=== PATIENT | male | born 1965 | race Caucasian/White ===

== ENCOUNTER 2017-09-27 18:48 | Emergency (ER) | payer OTHER ==
[2017-09-27 18:54] VITALS: BP 129/64
--- NOTE | 2017-09-27 19:13 | ED Physician Documentation ---
History of Present Illness - Stated complaint Stated Complaint: KNEE PX - Chief complaint Chief Complaint: Ext Problem - History obtained from History obtained from: Patient - History of Present Illness Timing: How many days ago (4) Pain level max: 6 Pain level now: 3 Improved by: rest Worsened by: bending past 90 degrees - Additonal information Additional information: Patient is a 52-year-old gentleman who presents to the emergency department with right knee pain, started a few days ago. Does not recall any trauma. States it is worse with extreme flexion. Has noted pain to the posterior aspect of the right knee as well as the lateral aspect. He is on methadone for chronic pain. Does not recall any injury. Has not been using any assistive devices to walk. No recent immobilization Review of Systems Cardiac: denies: Chest pain / pressure Respiratory: denies: Dyspnea, Cough GI: denies: Abdominal Pain, Nausea, Vomiting, Diarrhea Skin: denies: Rash Musculoskeletal: denies: Neck pain, Back pain PD PAST MEDICAL HISTORY - Past Medical History Cardiovascular: Hypertension, High cholesterol Respiratory: Asthma, Sleep apnea, CPAP use Endocrine/Autoimmune: Other GI: None : Other HEENT: None Psych: None Musculoskeletal: Other Derm: None - Past Surgical History Past Surgical History: Yes General: Colonoscopy, EGD Ortho: Shoulder arthroplasty, Carpal Tunnel surgery - Present Medications Home Medications: Ambulatory Orders Medication Instructions Recorded Confirmed Ibuprofen [Motrin] 800 mg ORAL BID 09/04/14 06/28/16 Methadone HCl 10 tab ORAL BID 09/04/14 06/28/16 Cyclobenzaprine [Flexeril] 10 mg PO DAILY 06/27/16 06/28/16 Losartan/Hydrochlorothiazide 1 each PO DAILY 06/27/16 06/28/16 [Losartan-Hctz 50-12.5 mg Tab] - Allergies Allergies/Adverse Reactions: Allergies Allergy/AdvReac Type Severity Reaction Status Date / Time No Known Drug Allergies Allergy Verified 09/27/17 18:53 - Social History Does the pt smoke?: Yes Smoking Status: Current every day smoker Does the pt drink ETOH?: No Does the pt have substance abuse?: No - Immunizations Immunizations are current?: Yes PD ED PE NORMAL - Vitals Vital signs reviewed: Yes - General General: Alert and oriented X 3, No acute distress, Well developed/nourished - Derm Derm: Warm and dry - Extremities Extremities: No calf tenderness / cord, Other (R knee - ACL, MCL, PCL, LCL intact. + fidencio test. mild joint effusion. NVI) - Neuro Neuro: Alert and oriented X 3 - Psych Psych: Normal mood, Normal affect Results - Vitals Vitals: Vital Signs - 24 hr 09/27/17 18:51 Temperature 36.9 C Heart Rate 119 H Respiratory 18 Rate Blood Pressure 129/64 O2 Saturation 96 Oxygen O2 Source Room air - Rads (name of study) R knee xray Radiology: Prelim report reviewed, EMP read contemporaneously, See rad report ( No acute findings. 1.9 cm lucent lesion in the distal femur overall has a nonaggressive appearance. The differential diagnosis includes a remnant of a nonossifying fibroma, enchondroma, or a lipoma.) PD MEDICAL DECISION MAKING - ED course Complexity details: reviewed results, re-evaluated patient, considered differential, d/w patient ED course: Patient is a 52-year-old male who presents to the emergency department with right knee pain. Appears to be a meniscus injury, likely the posterior lateral corner. No acute findings on x-ray other than a lucent lesion in the distal femur. He will follow-up with his doctor for this. Placed in an articulating knee brace from 0-90. Ambulating quite well with this. We will have him follow-up with his PCP for further evaluation and care. May need referral to orthopedics if he fails to improve with conservative therapy. Patient counseled regarding signs and symptoms for which I believe and urgent re- evaluation would be necessary. Patient with good understanding of and agreement to plan and is comfortable going home at this time This document was made in part using voice recognition software. While efforts are made to proofread this document, sound alike and grammatical errors may occur. Departure - Departure Disposition: 01 Home, Self Care Clinical Impression: Knee pain, acute Qualifiers: Laterality: right Qualified Code(s): M25.561 - Pain in right knee Condition: Good Instructions: ED Meniscal Injury Knee Poss Follow-Up: Francisco Horne MD [Primary Care Provider] - Within 1 week Comments: It appears likely that you have suffered a meniscus injury. This will likely get better on its own. You should rest the knee as much as possible, elevate when possible and ice the knee for 15 minutes approximately every 4-6 hours. Use the cane as needed. You can also use the hinged knee brace to help take some of the weight off the knee and support the knee. Return if you worsen. You also have a 1.9cm lucent lesion in your femur that appears benign on xray, but should be followed up with your doctor Discharge Date/Time: 09/27/17 19:41
--- NOTE | 2017-09-27 19:25 | XRAY Preliminary Report ---
Exam: XR KNEE 4 VIEW RT IMPRESSION: 1. No acute findings. 2. 1.9 cm lucent lesion in the distal femur overall has a nonaggressive appearance. The differential diagnosis includes a remnant of a nonossifying fibroma, enchondroma, or a lipoma. [facility] SITE ID: [id number]
--- NOTE | 2017-09-27 19:27 | XRAY Report ---
EXAM: RIGHT KNEE RADIOGRAPHY EXAM DATE: 09/27/2017 07:18 PM. CLINICAL HISTORY: Right knee pain COMPARISON: None. TECHNIQUE: 4 views. FINDINGS: Bones: No fractures. There is a lobulated lucent lesion with thin sclerotic rim in the posterior port ion of the distal femoral diaphysis. This measures 1.7 x 1.0 x 1.9 cm. Joints: Normal. No effusion. No subluxations. Soft Tissues: Normal. No soft tissue swelling. IMPRESSION: 1. No acute findings. 2. 1.9 cm lucent lesion in the distal femur overall has a nonaggressive appearance. The differential diagnosis includes a remnant of a nonossifying fibroma, enchondroma, or a lipoma. [facility] Referring Provider Line: [phone] SITE ID: [id number]
== END 2017-09-27 19:41 | disposition home or self-care (01) ==
LOC: ED 18:48
DX: M25.561 Pain in right knee (principal); I10 Essential (primary) hypertension; E78.00 Pure hypercholesterolemia, unspecified; G47.30 Sleep apnea, unspecified; J45.909 Unspecified asthma, uncomplicated; F17.200 Nicotine dependence, unspecified, uncomplicated
CPT/HCPCS: 99283

== ENCOUNTER 2017-10-08 06:30 | Emergency (ER) | payer OTHER ==
--- NOTE | 2017-10-08 07:49 | ED Physician Documentation ---
History of Present Illness - Stated complaint Stated Complaint: R KNEE PX - Chief complaint Chief Complaint: Ext Problem - Additonal information Additional information: hx from pt 52 male R knee pain for a week or two he thinks it may have been injured/tweaked when it was icy out and he was slipping and sliding pain was iniitallly intermittant but gradually worsening so he came to the ED and had an xray which showed no injury but there was a 1.9 cm lucent lesion to distal femur that was "non agressive appearing" with a ddx enchondroma, fibroma, lipoma based on exam pt felt to perhaps have a posterior lateral meniscal tear and he was placed in a breace pt fup at [facility] and examined, based on location of pain PMD thought perhaps a Bakers cyst and was going to d/w rads whether to get a CT or MRI to eval bone lesion then today while wearing brace, pt bent his knee to step into his truck and felt a pop and severe posterior pain from lateral to medial posterior knee so back to the ER he takes methadone for chronic pain and declines any motrin or tylenol Review of Systems Musculoskeletal: reports: Extremity pain PD PAST MEDICAL HISTORY - Past Medical History Past Medical History: Yes Cardiovascular: Hypertension, High cholesterol Respiratory: Asthma, Sleep apnea, CPAP use Endocrine/Autoimmune: Other GI: None : Other HEENT: None Psych: None Musculoskeletal: Other Derm: None - Past Surgical History Past Surgical History: Yes General: Colonoscopy, EGD Ortho: Shoulder arthroplasty, Carpal Tunnel surgery - Present Medications Home Medications: Ambulatory Orders Medication Instructions Recorded Confirmed Ibuprofen [Motrin] 800 mg ORAL BID 09/04/14 10/08/17 Methadone HCl 10 tab ORAL BID 09/04/14 10/08/17 Cyclobenzaprine [Flexeril] 10 mg PO DAILY 06/27/16 10/08/17 Losartan/Hydrochlorothiazide 1 each PO DAILY 06/27/16 10/08/17 [Losartan-Hctz 50-12.5 mg Tab] - Allergies Allergies/Adverse Reactions: Allergies Allergy/AdvReac Type Severity Reaction Status Date / Time No Known Drug Allergies Allergy Verified 10/08/17 06:53 - Social History Does the pt smoke?: Yes Smoking Status: Current every day smoker Does the pt drink ETOH?: No Does the pt have substance abuse?: No - Immunizations Immunizations are current?: Yes - POLST Patient has POLST: No PD ED PE NORMAL - Vitals Vital signs reviewed: Yes - Extremities Extremities: Other (R knee" no deformity, no effusion, not red or warm, no quad or patellar tendon TTP and extnsor mechansim intact, no patellar TTP, no medial jt line TTP, TTP posterior lateral jt line, no ACL LCL MCL laxity, some posterior lat jt line pain with mensical testing but no catch or pop, some popliteal fullness, MSV intact) Results - Vitals Vitals: Vital Signs - 24 hr 10/08/17 10/08/17 06:35 08:57 Temperature 36.2 C L Heart Rate 105 H 83 Respiratory 18 16 Rate Blood Pressure 130/83 H 138/77 H O2 Saturation 99 100 Oxygen O2 Source Room air - Rads (name of study) knee doppler Radiology: See rad report (no DVT no bakers cyst) Departure - Departure Disposition: 01 Home, Self Care Clinical Impression: Knee pain Qualifiers: Chronicity: acute Laterality: right Qualified Code(s): M25.561 - Pain in right knee Condition: Good Follow-Up: [facility] [Provider Group] Comments: The ultrasound did not show a blood clot or a bakers cyst. I would suggest asking your PMD at [facility] to get a MRI of your knee to evaluate the bone lesion and to assess the meniscus. In the mean time continue wearing the knee brace, no PT, motrin for mild pain,, continue your methadone as prescribed which will help as well Forms: Activity restrictions
[2017-10-08 08:57] VITALS: BP 138/77
--- NOTE | 2017-10-08 09:27 | Ultrasound Report ---
RIGHT LEG VENOUS DUPLEX: 10/08/2017 TECHNIQUE: Real-time sonographic vascular imaging was performed by the service rig operator through the right leg utilizing both color flow and Doppler spectral analysis. Multiple retail field representative static images were saved for review. FINDINGS: A right lower extremity venous sonogram is performed revealing the common femoral, superficial femoral, profunda femoris, and popliteal veins to be adequately visualized without intraluminal defects. There is normal venous compression, augmentation, phasicity, and spontaneity of venous flow. In the calf, the visualized more cephalad portions of posterior tibial and peroneal veins are grossly compressible, without filling defects. IMPRESSION: NO EVIDENCE OF DEEP VENOUS THROMBOSIS. MD CADE Hernandez TD: 10/08/2017 09:26 MTDD
== END 2017-10-08 10:03 | disposition home or self-care (01) ==
LOC: ED 06:30
DX: M25.561 Pain in right knee (principal); I10 Essential (primary) hypertension; E78.00 Pure hypercholesterolemia, unspecified; G47.30 Sleep apnea, unspecified; J45.909 Unspecified asthma, uncomplicated; F17.200 Nicotine dependence, unspecified, uncomplicated
CPT/HCPCS: 99283

== ENCOUNTER 2019-03-29 10:23 | Outpatient (CLI) | payer OTHER | END 2019-03-29 10:24 | disposition home or self-care (01) | LOC: SC 10:23 | PROVIDERS: ATTEND Internal Medicine Pulmonary Disease | DX: G47.33 Obstructive sleep apnea (adult) (pediatric) (principal) | CPT/HCPCS: 99203; 99212 ==

== ENCOUNTER 2019-04-30 19:31 | Outpatient (CLI) | payer OTHER | END 2019-04-30 19:32 | disposition home or self-care (01) | LOC: SC 19:31 | PROVIDERS: ATTEND Internal Medicine Pulmonary Disease | DX: G47.33 Obstructive sleep apnea (adult) (pediatric) (principal) | CPT/HCPCS: 95810 ==

== ENCOUNTER 2019-05-18 15:09 | Outpatient (CLI) | payer OTHER ==
--- NOTE | 2019-05-18 15:39 | CONSULTATION NOTE ---
Information from patient questionnaire entered by Lore Linder. I have reviewed and concur with the information entered by Lore Linder. This document represents the service I personally performed and the decisions made by me, Omega Mishra MD, [facility]. - History of Present Illness HPI: Mr. Almeida returned for follow up of the sleep study he had on 04/30/2019. The polysomnography showed that the patient had normal sleep efficiency. The sleep architecture was abnormal for sleep fragmentation and lack of slow wave sleep (N3). Respiratory monitoring showed moderate obstructive sleep apnea- hypopnea (AHI = 23.1) associated with frequent arousals, oxyhemoglobin desaturation and mild hypoxia (christiana oxygen saturation of 89%). The patient only slept supine during this study (supine AHI = 23.1; non-supine = 0.00). Snore was moderate in intensity. There was no periodic leg movement of sleep. Cardiac rhythm was normal sinus rhythm without significant arrhythmia. No abnormal behavior (parasomnia) observed during the night. The patient was informed of these findings. I explained to him the path ophysiology behind obstructive sleep apnea. We then spent quite a bit of time discussing different treatment options. For mild obstructive sleep apnea, surgery and oral appliance are alternatives to nasal CPAP therapy but in moderate or severe cases, nasal CPAP is the most effective and reliable treatment. Weight loss in an obese individual is strongly recommended. After some discussion, he opted to continue with the CPAP therapy. Presently, he is using a ResMed S9 autoCPAP set between 10 and 17 cmH2O (I lowered it from 16 20 cmH2O). He is more comfortable on the pressure setting. He is using the Respironics Wisp nasal mask that we gave to him from the sleep study. Initial [place] Sleepiness Scale score: 8 Current [place] Sleepiness Scale score: 7 - Allergies/Medications Allergies and home medications reviewed: Yes - Review of Systems Review of systems same as previous: Yes - Impression 1. Obstructive Sleep Apnea-Hypopnea Syndrome, moderate, associated with mild hypoxemia and sleep fragmentation. The patient has been on CPAP therapy for about a decade now with good compliance and response. Based on his recent in- laboratory polysomnography, I will order him a new autoCPAP and set it at 10 17 cmH2O. - Plan 1. Prescription made for an autoCPAP, heated humidifier, and related supplies. 2. Try either the Respironics DreamWear nasal cushion mask or ResMed N30i mask 3. Attempt to lose weight and avoid alcohol consumption near bedtime. 4. Return in six weeks for follow up. I will assess his response and compliance at that time. This visit is time-based and I spent 15 minutes with the patient and more than 50% of the time was spent counseling the patient.
== END 2019-05-18 15:10 | disposition home or self-care (01) ==
LOC: SC 15:09
PROVIDERS: ATTEND Internal Medicine Pulmonary Disease
DX: G47.33 Obstructive sleep apnea (adult) (pediatric) (principal)
CPT/HCPCS: 99212; 99213

== ENCOUNTER 2019-05-20 14:39 | Emergency (ER) | payer OTHER ==
[2019-05-20 15:00] VITALS: BP 146/89
[2019-05-20] MEDS ORDERED: TETANUS/DIPHTHERIA/PERTUSSIS 0.5 ML SYRINGE IM ONE (16:04)
--- NOTE | 2019-05-20 16:06 | ED Physician Documentation ---
PD HPI HEAD INJURY - Stated complaint Stated Complaint: HEAD LAC - Chief complaint Chief Complaint: Laceration - History obtained from History obtained from: Patient - History of Present Illness Mechanism of head injury: Blow (53-year-old gentleman with unknown tetanus status bent over to pick something up and hit his head on something on the way back up. He has a puncture wound on the right parietal/occipital area. He felt dizzy for a moment and now has an increasing headache. No other injuries.) Review of Systems Constitutional: reports: Reviewed and negative Throat: reports: Reviewed and negative Cardiac: reports: Reviewed and negative Respiratory: reports: Reviewed and negative PD PAST MEDICAL HISTORY - Past Medical History Cardiovascular: Hypertension, High cholesterol Respiratory: Asthma, Sleep apnea, CPAP use Endocrine/Autoimmune: Other GI: None : Other HEENT: None Psych: None Musculoskeletal: Other Derm: None - Past Surgical History Past Surgical History: Yes General: Colonoscopy, EGD Ortho: Shoulder arthroplasty, Carpal Tunnel surgery - Present Medications Home Medications: Ambulatory Orders Medication Instructions Recorded Confirmed Ibuprofen [Motrin] 800 mg ORAL BID 09/04/14 10/08/17 Methadone HCl 10 tab ORAL BID 09/04/14 10/08/17 Cyclobenzaprine [Flexeril] 10 mg PO DAILY 06/27/16 10/08/17 Losartan/Hydrochlorothiazide 1 each PO DAILY 06/27/16 10/08/17 [Losartan-Hctz 50-12.5 mg Tab] - Allergies Allergies/Adverse Reactions: Allergies Allergy/AdvReac Type Severity Reaction Status Date / Time No Known Drug Allergies Allergy Verified 05/20/19 14:48 - Social History Does the pt smoke?: Yes Smoking Status: Current every day smoker Does the pt drink ETOH?: No Does the pt have substance abuse?: No - Immunizations Immunizations are current?: Yes - POLST Patient has POLST: No PD ED PE NORMAL - Vitals Vital signs reviewed: Yes - General General: Alert and oriented X 3, No acute distress - HEENT HEENT: PERRL, EOMI, Other (There is a puncture wound on the back of the right parietal area without active bleeding. No scalp or bony tenderness.) - Neck Neck: Supple, no meningeal sign, No bony TTP - Neuro Neuro: Alert and oriented X 3, education professor 2-12 intact Eye Opening: Spontaneous Motor: Obeys Commands Verbal: Oriented GCS Score: 15 Results - Vitals Vitals: Vital Signs - 24 hr 05/20/19 14:47 Temperature 36.0 C L Heart Rate 78 Respiratory 19 Rate Blood Pressure 146/89 H O2 Saturation 98 Oxygen O2 Source Room air - Rads (name of study) Head CT Radiology: EMP read contemporaneously (normal) Departure - Departure Disposition: Home, Self Care Clinical Impression: Puncture wound of scalp Qualifiers: Encounter type: initial encounter Qualified Code(s): S01.03XA - Puncture wound without foreign body of scalp, initial encounter Head injury Qualifiers: Encounter type: initial encounter Qualified Code(s): S09.90XA - Unspecified injury of head, initial encounter Condition: Good Record reviewed to determine appropriate education?: Yes Instructions: ED Head Injury Closed Comments: Your blood pressure was elevated today on check into the emergency department. This does not mean that you have hypertension, it is a common phenomenon to come to the emergency department and have elevated blood pressure. I recommend that you see your primary care physician within the week to have it rechecked when yo u are feeling better.
--- NOTE | 2019-05-20 16:46 | CT Report ---
Reason: head inj Procedure Date: 05/20/2019 Accession Number: [id number] / [id number] Procedure: CT - HEAD WO CPT Code: FULL RESULT: EXAM: CT HEAD EXAM DATE: 05/20/2019 04:25 PM. CLINICAL HISTORY: Head inj. COMPARISON: None. TECHNIQUE: Multiaxial CT images were obtained from the foramen magnum to the vertex. Reformats: Sagittal and coronal. IV contrast: None. In accordance with CT protocol optimization, one or more of the following dose reduction techniques were utilized for this exam: automated exposure control, adjustment of mA and/or KV based on patient size, or use of iterative reconstructive technique. FINDINGS: Parenchyma: No intraparenchymal hemorrhage. No evidence of mass, midline shift, or CT findings of infarction. Hodgson-white differentiation is distinct. Extraaxial Spaces: Normal for age. No subdural or epidural collections identified. Ventricles: Normal in size and position. Sinuses and Orbits: Imaged paranasal sinuses, orbits, and mastoids show no significant abnormality. Bones: No evidence of fracture or calvarial defect. Other: None. IMPRESSION: Negative nonenhanced head CT. [facility]
== END 2019-05-20 16:59 | disposition home or self-care (01) ==
LOC: ED 14:39
DX: S01.03XA Puncture wound without foreign body of scalp, initial encounter (principal); S09.90XA Unspecified injury of head, initial encounter; W22.09XA Striking against other stationary object, initial encounter; Z23 Encounter for immunization; I10 Essential (primary) hypertension; F17.200 Nicotine dependence, unspecified, uncomplicated
CPT/HCPCS: 70450; 90471; 99282

== ENCOUNTER 2019-08-16 08:58 | Outpatient (CLI) | payer OTHER ==
--- NOTE | 2019-08-16 09:41 | SLEEP CARE CONSULTATION ---
Information from patient questionnaire entered by Lore Linder. I have reviewed and concur with the information entered by Lore Linder. This document represents the service I personally performed and the decisions made by me, Omega Mishra MD, [facility]. History of Present Illness Previous diagnosis: Moderate, Obstructive Sleep Apnea-Hypopnea Syndrome AHI: 23.1 Reason for CPAP/BiPAP follow up: first compliance Equipment type: CPAP Equipment obtained from: [employer] Mask brand: Respironics Prior sleep studies: Yes Year and Where: 2018 [facility] additional information: HPI: Mr. Almeida returned today for follow up of nasal CPAP therapy. He was diagnosed to have moderate obstructive sleep apnea-hypopnea syndrome. The patient was fitted with a Respironics Wisp nasal mask nasal mask (he said the [employer] medical supplier did not bring out a Respironics DreamWear nasal cushion mask or ResMed N30i mask). He reports using the device nightly and all through the night. The compliance report shows usage in 30 nights out of the past 30 nights, averaging 5.6 hours a night. He complained of no particular problem with the device such as soreness on the face, dry nose, epistaxis, nasal congestion or headache. He thinks that the pressure of 10 17 cmH2O is comfortable than the previous 16 20 cmH2O. On the CPAP therapy he notices improvement in his sleep quality, and that he wakes up feeling fresher in the morning and more awake/alert during the day. The average residual AHI is 0.6 (unchanged from the higher setting); and air leak, 0 L/min. The 90th percentile pressure is 11.1 cmH2O. CPAP Compliance Data - Data Reviewed with Patient Average duration of nightly device use: 5h 39m Compliance rate %: 80 Current pressure setting (cmH2O): 10-17 Humidity setting: off Heated hose settin Subjective Current pressure setting perceived as: comfortable Initial [place] Sleepiness Scale score: 8 Current [place] Sleepiness Scale score: 5 Allergies and Home Medications Drug allergies reviewed: Yes Home medication list reviewed: Yes Review of Systems Review of systems same as previous: Yes Physical Exam Weight: 295 lb Impression and Plan IMPRESSION: 1. Obstructive Sleep Apnea-Hypopnea Syndrome, moderate, with the patient doing well on nasal CPAP therapy. He has excellent compliance and significant clinical improvement. The current pressure appears effective and comfortable. Overall, he is very satisfied with treatment and plans to continue with it long- term. No adjustment is necessary today (I offered to lower the pressure but he declined). PLAN: 1. Continue with autoCPAP set 1t 10 - 17 cmH2O. 2. Try to lose weight 3. Try other Respironics DreamWear nasal cushion mask and ResMed N30i mask. A prescription was written for him. 4. Return in one year for follow up or earlier if there is any problem with the treatment. I spent 100% of this 20 minute visit face to face with the patient with greater than 50% of this was spent time counseling the patient and coordination of care.
== END 2019-08-16 08:59 | disposition home or self-care (01) ==
LOC: SC 08:58
PROVIDERS: ATTEND Internal Medicine Pulmonary Disease
DX: G47.33 Obstructive sleep apnea (adult) (pediatric) (principal)
CPT/HCPCS: 99212; 99213

== ENCOUNTER 2019-10-05 07:24 | Emergency (ER) | payer OTHER ==
[2019-10-05 07:36] VITALS: BP 142/95
--- NOTE | 2019-10-05 07:43 | ED Physician Documentation ---
PD HPI URI - Stated complaint Stated Complaint: SORE THROAT - Chief complaint Chief Complaint: Heent - History obtained from History obtained from: Patient - History of Present Illness Timing - onset: How many weeks ago (1) Timing duration: Weeks (1) Timing details: Abrupt onset, Still present Associated symptoms: Fever (first few days, not currently), Nasal congestion, Sore throat, Productive cough. No: NVD, Bilateral edema Contributing factors: No: Sick contact, Immunocompromised, COPD / asthma Worsened by: Activity Similar symptoms before: Has not had sx before Recently seen: Not recently seen Review of Systems Constitutional: reports: Fever (last week for couple days), Chills, Myalgias Nose: reports: Congestion. denies: Rhinorrhea / runny nose Throat: reports: Sore throat Respiratory: reports: Cough GI: denies: Vomiting, Diarrhea Skin: denies: Rash, Lesions Neurologic: denies: Altered mental status, Headache PD PAST MEDICAL HISTORY - Past Medical History Past Medical History: Yes Cardiovascular: Hypertension, High cholesterol Respiratory: Asthma, Sleep apnea, CPAP use Endocrine/Autoimmune: Other GI: None : Other HEENT: None Psych: None Musculoskeletal: Other Derm: None - Past Surgical History Past Surgical History: Yes General: Colonoscopy, EGD Ortho: Shoulder arthroplasty, Carpal Tunnel surgery - Present Medications Home Medications: Ambulatory Orders Medication Instructions Recorded Confirmed Ibuprofen [Motrin] 800 mg ORAL BID 09/04/14 10/08/17 Methadone HCl 10 tab ORAL BID 09/04/14 10/08/17 Cyclobenzaprine [Flexeril] 10 mg PO DAILY 06/27/16 10/08/17 Losartan/Hydrochlorothiazide 1 each PO DAILY 06/27/16 10/08/17 [Losartan-Hctz 50-12.5 mg Tab] Benzonatate [Tessalon Perle] 100 mg PO TID PRN #20 capsule 10/05/19 Doxycycline Monohydrate 100 mg PO BID #14 tablet 10/05/19 Hydrocodone/Acetaminophen [[place] 1 each PO Q6H PRN #15 tablet 10/05/19 5-325 Tablet] dexAMETHasone [Decadron] 4 mg PO DAILY #5 tablet 10/05/19 - Allergies Allergies/Adverse Reactions: Allergies Allergy/AdvReac Type Severity Reaction Status Date / Time No Known Drug Allergies Allergy Verified 10/05/19 07:31 - Social History Does the pt smoke?: Yes Smoking Status: Current every day smoker Does the pt drink ETOH?: No Does the pt have substance abuse?: No - Immunizations Immunizations are current?: Yes - POLST Patient has POLST: No PD ED PE NORMAL - Vitals Vital signs reviewed: Yes - General General: Alert and oriented X 3, No acute distress, Well developed/nourished - HEENT HEENT: No: Pharynx benign (Some mild swelling of the tonsils and uvula with redness but no exudate. There is some hoarseness of his voice. He is able to swallow and breathe okay.) - Neck Neck: Supple, no meningeal sign, No adenopathy - Cardiac Cardiac: RRR, No murmur - Respiratory Respiratory: Clear bilaterally - Derm Derm: Normal color, Warm and dry, No rash - Neuro Neuro: Alert and oriented X 3, No motor deficit Results - Vitals Vitals: Vital Signs - 24 hr 10/05/19 07:29 Temperature 37.4 C Heart Rate 90 Respiratory 14 Rate Blood Pressure 142/95 H O2 Saturation 96 Oxygen O2 Source Room air - Labs Labs: Laboratory Tests 10/05/19 10/05/19 07:30 07:30 Influenza A (Rapid) Negative Influenza B (Rapid) Negative Group A Strep Rapid Negative PD MEDICAL DECISION MAKING - ED course Complexity details: reviewed results, considered differential (Symptoms for a week and had been somewhat improving and now worse again. May be viral versus now secondary bacterial.), d/w patient Departure - Departure Disposition: 01 Home, Self Care Clinical Impression: Upper respiratory infection Qualifiers: URI type: unspecified URI Qualified Code(s): J06.9 - Acute upper respiratory infection, unspecified Condition: Stable Record reviewed to determine appropriate education?: Yes Instructions: ED Upper Resp Infec Abx Tx Follow-Up: JACQUES BOWLING DO [Primary Care Provider] - Prescriptions: Benzonatate [Tessalon Perle] 100 mg PO TID PRN #20 capsule PRN Reason: Cough dexAMETHasone [Decadron] 4 mg PO DAILY #5 tablet Doxycycline Monohydrate 100 mg PO BID #14 tablet Hydrocodone/Acetaminophen [[place] 5-325 Tablet] 1 each PO Q6H PRN #15 tablet PRN Reason: Pain Comments: Stay well-hydrated. Tylenol or ibuprofen if needed for fever and pains. Add hydrocodone if needed for worse pain. Your strep test and flu test are negative. It still sounds like bronchitis and may be viral or bacterial. We will treat it with doxycycline antibiotic and Decadron steroid for inflammation. Add Tessalon if needed for cough or sore throat. Recheck if not improving well over the next several days.
[2019-10-05] MEDS ORDERED: DEXAMETHASONE 10 MG/ML VIAL PO STA (07:53)
[2019-10-05] MEDS ORDERED: BENZONATATE 100 MG CAPSULE PO STA (07:53)
[2019-10-05] MEDS ORDERED: CHERRY SYRUP 10 ML UDC PO ONE (07:53)
[2019-10-05] MEDS ORDERED: DOXYCYCLINE 100 MG TABLET PO STA (07:57)
== END 2019-10-05 08:08 | disposition home or self-care (01) ==
LOC: ED 07:24
DX: J06.9 Acute upper respiratory infection, unspecified (principal); J35.1 Hypertrophy of tonsils; R49.0 Dysphonia; J45.909 Unspecified asthma, uncomplicated; F17.200 Nicotine dependence, unspecified, uncomplicated; I10 Essential (primary) hypertension
CPT/HCPCS: 87070; 87275; 87276; 87430; 99283; A9270

== ENCOUNTER 2020-07-09 17:57 | Emergency (ER) | payer OTHER ==
[2020-07-09] MEDS ORDERED: predniSONE 20 MG TABLET PO STA (18:23)
[2020-07-09] MEDS ORDERED: KETOROLAC 60 MG/2 ML VIAL IM STA (18:23)
[2020-07-09] MEDS ORDERED: oxyCODONE 5 MG TABLET PO STA (18:23)
--- NOTE | 2020-07-09 18:37 | ED Physician Documentation ---
PD HPI BACK PAIN - Stated complaint Stated Complaint: R BACK PAIN - Chief complaint Chief Complaint: Back Pain - History obtained from History obtained from: Patient - History of Present Illness Timing - onset: Chronic Timing - duration: Years, Other (worse for the past 5 days) Pain level max: 9 Pain level now: 9 Location: Right Quality: Pain, Similar to prior episodes Associated symptoms: No: Fever, Weakness, Numbness, Incontinent of urine, Unable to urinate, Hematuria, Incontinent of stool Improves with: Rest Worsened by: Movement Contributing factors: No: Lifting, Twisting, Trauma, Anticoagulated, Cancer, IVDA, Out of meds Similar symptoms before: Diagnosis (sciatica) - Additional information Additional information: 55-year-old male states that he has a history of chronic back pain. Has multiple herniated disks and is maintained on methadone 10 mg p.o. twice daily. He states that occasionally he has sciatica flareups as well. He states the pain radiates down the right leg. He states that his primary care provider and his pain management doctor are both okay with short-term pain medications from the emergency department. No loss of bowel or bladder control. No fevers. No trauma. No IV drug use Review of Systems Ten Systems: 10 systems reviewed and negative Constitutional: denies: Fever, Chills Nose: denies: Rhinorrhea / runny nose, Congestion GI: denies: Vomiting Skin: denies: Rash Musculoskeletal: denies: Neck pain Neurologic: denies: Focal weakness, Numbness PD PAST MEDICAL HISTORY - Past Medical History Cardiovascular: Hypertension, High cholesterol Respiratory: Asthma, Sleep apnea, CPAP use Endocrine/Autoimmune: Other GI: None : Other HEENT: None Psych: None Musculoskeletal: Other Derm: None - Past Surgical History Past Surgical History: Yes General: Colonoscopy, EGD Ortho: Shoulder arthroplasty, Carpal Tunnel surgery - Present Medications Home Medications: Ambulatory Orders Medication Instructions Recorded Confirmed Ibuprofen [Motrin] 800 mg ORAL BID 09/04/14 10/08/17 Methadone HCl 10 tab ORAL BID 09/04/14 10/08/17 Cyclobenzaprine [Flexeril] 10 mg PO DAILY 06/27/16 10/08/17 Losartan/Hydrochlorothiazide 1 each PO DAILY 06/27/16 10/08/17 [Losartan-Hctz 50-12.5 mg Tab] Benzonatate [Tessalon Perle] 100 mg PO TID PRN #20 capsule 10/05/19 Doxycycline Monohydrate 100 mg PO BID #14 tablet 10/05/19 Hydrocodone/Acetaminophen [[place] 1 each PO Q6H PRN #15 tablet 10/05/19 5-325 Tablet] dexAMETHasone [Decadron] 4 mg PO DAILY #5 tablet 10/05/19 Oxycodone HCl/Acetaminophen 1 - 2 each PO Q6H PRN #14 tablet 07/09/20 [Percocet 5-325 mg Tablet] predniSONE [Deltasone] 10 mg PO [id number] #42 tab 07/09/20 - Allergies Allergies/Adverse Reactions: Allergies Allergy/AdvReac Type Severity Reaction Status Date / Time No Known Drug Allergies Allergy Verified 07/09/20 18:10 - Social History Does the pt smoke?: Yes Smoking Status: Current every day smoker Does the pt drink ETOH?: No Does the pt have substance abuse?: No - Immunizations Immunizations are current?: Yes - POLST Patient has POLST: No PD ED PE NORMAL - Vitals Vital signs reviewed: Yes - General General: Alert and oriented X 3, No acute distress - HEENT HEENT: Moist mucous membranes - Neck Neck: Supple, no meningeal sign - Cardiac Cardiac: RRR - Respiratory Respiratory: No respiratory distress, Clear bilaterally - Back Back: No spinal TTP (No midline tenderness to palpation or percussion.) - Derm Derm: Warm and dry - Extremities Extremities: Other (Normal bilateral lower extremity patellar and ankle jerk reflexes. Normal great toe extension bilaterally. no saddle anesthesia) - Neuro Neuro: Alert and oriented X 3, poultry tender 2-12 intact, No motor deficit, No sensory deficit, Normal speech Results - Vitals Vitals: Vital Signs - 24 hr 07/09/20 18:10 Temperature 37.2 C Heart Rate 87 Respiratory 16 Rate Blood Pressure 129/81 H O2 Saturation 96 Oxygen O2 Source Room air PD MEDICAL DECISION MAKING - ED course Complexity details: re-evaluated patient, considered differential (No cauda equina, no spinal epidural abscess, no fracture, no aortic dissection or evidence of aneursym rupture), d/w patient ED course: 55-year-old male presents the emergency department sciatica. Given Toradol, oxycodone and prednisone. Will start him on a steroid taper for home. No evidence of cauda equina, epidural abscess. No evidence of fracture. Patient counseled regarding signs and symptoms for which I believe and urgent re- evaluation would be necessary. Patient with good understanding of and agreement to plan and is comfortable going home at this time This document was made in part using voice recognition software. While efforts are made to proofread this document, sound alike and grammatical errors may occur. Departure - Departure Disposition: 01 Home, Self Care Clinical Impression: Sciatica Qualifiers: Laterality: right Qualified Code(s): M54.31 - Sciatica, right side Condition: Good Instructions: ED Sciatica Follow-Up: JACQUES BOWLING DO [Primary Care Provider] - Within 1 week Prescriptions: predniSONE [Deltasone] 10 mg PO [id number] #42 tab Oxycodone HCl/Acetaminophen [Percocet 5-325 mg Tablet] 1 - 2 each PO Q6H PRN #14 tablet PRN Reason: pain Comments: Take the steroids until gone. Return if you worsen. Follow-up with your doctor for further care. This should improve over the next few days. Do not drink alcohol or drive while on narcotic pain medicine. Note that many narcotic pain relievers also contain tylenol/acetaminophen. Pleas e ensure that your total dose of acetaminophen from all sources does not exceed 3 grams (3000mg) per day. You may constipated on this medication, take a stool softener such as "Colace" twice a day while you are on it. Also recommend a lthi-xaj-moglkoy laxative such as senna or MiraLAX any day that you do not have a bowel movement. If you received narcotic pain medication in the emergency department, do not drive or operate machinery for the next 24 hours.
[2020-07-09 19:05] VITALS: BP 132/65
== END 2020-07-09 19:05 | disposition home or self-care (01) ==
LOC: ED 17:57
DX: M54.31 Sciatica, right side (principal); M54.9 Dorsalgia, unspecified; G89.29 Other chronic pain; I10 Essential (primary) hypertension; F17.200 Nicotine dependence, unspecified, uncomplicated
CPT/HCPCS: 96372; 99283; 99284; A9270; J7512

== ENCOUNTER 2020-07-25 15:25 | Outpatient (CLI) | payer OTHER ==
--- NOTE | 2020-07-25 16:34 | SLEEP CARE CONSULTATION ---
Information from patient questionnaire entered by Crystal Montelongo. I have reviewed and concur with the information entered by Crystal Montelongo. This document represents the service I personally performed and the decisions made by me, Omega Mishra MD, [facility]. History of Present Illness Service Date and Time: 07/25/2020 1525 Previous diagnosis: Moderate, Obstructive Sleep Apnea-Hypopnea Syndrome AHI: 23.1 (in 2019) Reason for follow up: annual (last seen 2019) Equipment type: CPAP Equipment obtained from: [employer] Mask style: Nasal Mask brand: Respironics Prior sleep studies: Yes Year and Where: 2019 - [facility] additional information: HPI: Mr. Almeida returned today for annual follow up of nasal CPAP therapy. He was diagnosed to have moderate obstructive sleep apnea-hypopnea syndrome. The patient was fitted with a Respironics Wisp nasal mask nasal mask. He reports using the device nightly and all through the night. The compliance report shows usage in 29 nights out of the past 30 nights, averaging 7.4 hours a night. He complained of no particular problem with the device such as soreness on the face, dry nose, epistaxis, nasal congestion or headache. He thinks that the pressure of 10 17 cmH2O is comfortable than the previous 16 20 cmH2O. On the CPAP therapy he notices improvement in his sleep quality, and that he wakes up feeling fresher in the morning and more awake/alert during the day. Mcgee Sleepiness Scale score is 7. The average residual AHI is 3.4; and average time in large leak per day is 25 seconds. The 90th percentile pressure is 11.3 cmH2 O. Sleep Study - Results Prior sleep studies: Yes Year and Where: 2019 [facility] CPAP Compliance Data - Data Reviewed with Patient Average duration of nightly device use: 6.5 Compliance rate %: 80.6 (180 days) Current pressure setting (cmH2O): 10-17 Humidity settin Heated hose settin Average residual AHI: 3.4 Average large leak: 25 sec Subjective Missed days of use due to: reports: other (insomnia) Patient concerns: reports: air blowing in eyes Current pressure setting perceived as: comfortable Initial Mcgee Sleepiness Scale score: 8 (in 2019) Current Mcgee Sleepiness Scale score: 7 Allergies and Home Medications Drug allergies reviewed: Yes Home medication list reviewed: Yes Review of Systems Review of systems same as previous: Yes Physical Exam Vital signs obtained and entered by: To minimize the risk of COVID-19 exposure, detailed exam was not performed. Height: 5 ft 11 in Weight: 295 lb Body Mass Index: 41.1 BMI Classification: Morbidly Obese Impression and Plan IMPRESSION: 1. Obstructive Sleep Apnea-Hypopnea Syndrome, moderate, with the patient doing well on nasal CPAP therapy. He has excellent compliance and significant clinical improvement. The current pressure appears effective and comfortable. Overall, he is very satisfied with treatment and plans to continue with it long- term. No adjustment is necessary today. PLAN: 1. Continue with autoCPAP set 1t 10 - 17 cmH2O. 2. Try to lose weight 3. A ResMed Quattro FX full face mask size small given to him to give to his because her mask broke. 3. Return in one year for follow up or earlier if there is any problem with the treatment. Visit Type: In Office Time Spent with Patient (minutes): 15 Provider Statement: I spent 100% of the Face to Face Visit with the patient with greater than 50% spent counseling the patient and coordination of care.
== END 2020-07-25 15:26 | disposition home or self-care (01) ==
LOC: SC 15:25
PROVIDERS: ATTEND Internal Medicine Pulmonary Disease
DX: G47.33 Obstructive sleep apnea (adult) (pediatric) (principal); E66.01 Morbid (severe) obesity due to excess calories; Z68.41 Body mass index [BMI] 40.0-44.9, adult
CPT/HCPCS: 99212; 99213

== ENCOUNTER 2020-07-29 15:16 | Emergency (ER) | payer OTHER ==
--- NOTE | 2020-07-29 15:33 | ED Physician Documentation ---
PD HPI CHEST PAIN - Stated complaint Stated Complaint: WEIRD HEART RATE - Chief complaint Chief Complaint: Cardiac - History obtained from History obtained from: Patient - Additional information Additional information: 55-year-old gentleman who for the last 3 to 4 weeks has noted higher than normal heart rates, was referred to a landing gear mechanic and that referral is pending but felt especially bad with high heart rates up into the 140s today and his iPhone thought he was in atrial fibrillation which he is never been in before. Does have mild shortness of breath. No chest pain. No pedal edema. Review of Systems Constitutional: reports: Fatigue. denies: Fever, Chills Cardiac: reports: Palpitations. denies: Chest pain / pressure, Pedal edema, Calf pain Respiratory: reports: Dyspnea. denies: Cough PD PAST MEDICAL HISTORY - Past Medical History Past Medical History: Yes Cardiovascular: Hypertension, High cholesterol Respiratory: Asthma, Sleep apnea, CPAP use Endocrine/Autoimmune: Other GI: None : Other HEENT: None Psych: None Musculoskeletal: Other Derm: None - Past Surgical History Past Surgical History: Yes General: Colonoscopy, EGD Ortho: Shoulder arthroplasty, Carpal Tunnel surgery - Present Medications Home Medications: Ambulatory Orders Medication Instructions Recorded Confirmed Ibuprofen [Motrin] 800 mg ORAL BID 09/04/14 10/08/17 Methadone HCl 10 tab ORAL BID 09/04/14 10/08/17 Cyclobenzaprine [Flexeril] 10 mg PO DAILY 06/27/16 10/08/17 Losartan/Hydrochlorothiazide 1 each PO DAILY 06/27/16 10/08/17 [Losartan-Hctz 50-12.5 mg Tab] Benzonatate [Tessalon Perle] 100 mg PO TID PRN #20 capsule 10/05/19 Doxycycline Monohydrate 100 mg PO BID #14 tablet 10/05/19 Hydrocodone/Acetaminophen [[place] 1 each PO Q6H PRN #15 tablet 10/05/19 5-325 Tablet] dexAMETHasone [Decadron] 4 mg PO DAILY #5 tablet 10/05/19 Oxycodone HCl/Acetaminophen 1 - 2 each PO Q6H PRN #14 tablet 07/09/20 [Percocet 5-325 mg Tablet] predniSONE [Deltasone] 10 mg PO [id number] #42 tab 07/09/20 Metoprolol Succinate 25 mg PO DAILY #90 tab.er.24h 07/29/20 - Allergies Allergies/Adverse Reactions: Allergies Allergy/AdvReac Type Severity Reaction Status Date / Time No Known Drug Allergies Allergy Verified 07/09/20 18:10 - Social History Does the pt smoke?: Yes Smoking Status: Current every day smoker Does the pt drink ETOH?: No Does the pt have substance abuse?: No - Immunizations Immunizations are current?: Yes - POLST Patient has POLST: No PD ED PE NORMAL - Vitals Vital signs reviewed: Yes - General General: Alert and oriented X 3, No acute distress - HEENT HEENT: PERRL, EOMI - Neck Neck: Supple, no meningeal sign, No bony TTP - Cardiac Cardiac: RRR (Very mild tachycardia, regular though), No murmur - Respiratory Respiratory: No respiratory distress, Clear bilaterally - Abdomen Abdomen: Non tender - Extremities Extremities: No edema, No calf tenderness / cord - Neuro Neuro: Alert and oriented X 3, Normal speech Results - Vitals Vitals: Vital Signs - 24 hr 07/29/20 07/29/20 07/29/20 15:20 15:27 15:42 Temperature 36.5 C 36.5 C 37 C Heart Rate 108 H 108 H 102 H Respiratory 20 20 15 Rate Blood Pressure 154/93 H 154/93 H 140/87 H O2 Saturation 97 97 97 07/29/20 15:56 Temperature 37 C Heart Rate 101 H Respiratory 15 Rate Blood Pressure 112/76 O2 Saturation 96 Oxygen O2 Source Room air - EKG (time done) 1519 Rate: Rate (enter#) (104) Rhythm: Sinus tachycardia [place]: Normal Intervals: Normal [place] QRS: Normal Ischemia: Normal ST segments Computer interpretation: Agree with computer - Labs Labs: Laboratory Tests 07/29/20 07/29/20 07/29/20 15:40 15:40 15:40 WBC 8.0 RBC 5.60 Hgb 16.4 Hct 49.3 MCV 88.0 MCH 29.3 MCHC 33.3 RDW 12.6 Plt Count 209 MPV 10.1 Neut # (Auto) 5.0 Lymph # (Auto) 1.9 [place] # (Auto) 0.6 Eos # (Auto) 0.3 Baso # (Auto) 0.1 Absolute Nucleated RBC 0.00 Nucleated RBC % 0.0 Sodium 138 Potassium 3.8 Chloride 98 L Carbon Dioxide 29 Anion Gap 11.0 BUN 18 Creatinine 1.1 Estimated GFR (MDRD) 70 L Glucose 210 H Calcium 9.1 Magnesium 1.9 Total Bilirubin 0.7 AST 24 ALT 33 Alkaline Phosphatase 76 Total Protein 7.5 Albumin 4.5 Globulin 3.0 Albumin/Globulin Ratio 1.5 Lipase 45 TSH 1.28 PD MEDICAL DECISION MAKING - ED course ED course: He had no episodes of atrial fibrillation while in the department but he showed me the ECG readouts from his iPhone which were consistent with paroxysmal atrial fibrillation. Departure - Departure Disposition: Home, Self Care Clinical Impression: Paroxysmal atrial fibrillation Condition: Good Record reviewed to determine appropriate education?: Yes Instructions: Atrial Fibrillation Dc Prescriptions: Metoprolol Succinate 25 mg PO DAILY #90 tab.er.24h Comments: Continue baby aspirin a day, we are adding a very low-dose of a beta-billy. Follow-up with the landing gear mechanic as scheduled. Discuss anticoagulation. Return if worsening.
[2020-07-29 15:48] LABS: BASOPHILS # (AUTO) 0.1 10^3/uL (0.0-0.1); BASOPHILS % (AUTO) 0.8 %; EOSINOPHILS # (AUTO) 0.3 10^3/uL (0.0-0.7); EOSINOPHILS % (AUTO) 3.6 %; HGB - HEMOGLOBIN 16.4 g/dL (14.0-18.0); LYMPHOCYTES # (AUTO) 1.9 10^3/uL (1.5-3.5); LYMPHOCYTES % (AUTO) 24.3 %; MEAN CORPUSCULAR HEMOGLOBIN 29.3 pg (27.0-31.0); MEAN CORPUSCULAR HGB CONC 33.3 g/dL (32.0-36.0); MEAN PLATELET VOLUME 10.1 fL (7.4-11.4); MONOCYTES # (AUTO) 0.6 10^3/uL (0.0-1.0); MONOCYTES % (AUTO) 7.5 %; NEUTROPHILS % (AUTO) 63.2 %; PLT - PLATELET COUNT 209 10^3/uL (130-450); RED CELL DISTRIBUTION WIDTH 12.6 % (12.0-15.0)
[2020-07-29 16:01] LABS: ALBUMIN 4.5 g/dL (3.2-5.5); ALBUMIN/GLOBULIN RATIO 1.5 (1.0-2.2); BILIRUBIN,TOTAL 0.7 mg/dL (0.2-1.0); CALCIUM 9.1 mg/dL (8.5-10.3); CREATININE 1.1 mg/dL (0.6-1.2); MAGNESIUM 1.9 mg/dL (1.7-2.8); TOTAL PROTEIN 7.5 g/dL (6.7-8.2)
[2020-07-29 16:45] VITALS: BP 138/72
== END 2020-07-29 16:47 | disposition home or self-care (01) ==
LOC: ED 15:16
DX: I48.0 Paroxysmal atrial fibrillation (principal); I10 Essential (primary) hypertension; F17.200 Nicotine dependence, unspecified, uncomplicated
CPT/HCPCS: 36415; 80053; 83690; 83735; 84443; 85025; 93005; 99284

== ENCOUNTER 2023-01-18 17:07 | Outpatient (CLI) | payer OTHER ==
--- NOTE | 2023-01-20 09:10 | MRI Report ---
PROCEDURE: LUMBAR SPINE WO INDICATIONS: LUMBAR RADICULOPATHY TECHNIQUE: Noncontrast sagittal T1 spin echo and T2 fast echo, sagittal STIR, axial T1 and T2 fast spin echo thr ough the lumbar spine. In cases with scoliosis, additional coronal T2 fast spin echo may be performe d. COMPARISON: None. FINDINGS: Image quality: Excellent. Alignment and Curvature: There is normal bony alignment. Bone Marrow: Marrow is of normal overall signal. No acute vertebral body compression fractures. Spinal Cord: Conus medullaris terminates at the L1-L2 level. Visualized cord demonstrates normal si gnal and size. Paraspinous Soft Tissues: No paravertebral masses. T12-L1: Normal in appearance. L1-L2: Normal in appearance. L2-L3: Normal in appearance. L3-L4: Normal in appearance. L4-L5: Mild posterior disc bulge. Facet hypertrophy. No central canal stenosis. Right foraminal christiano ulus tear plus disc bulge. Mild to moderate bilateral foraminal narrowing without nerve root impingem ent. L5-S1: Mild disc bulge. Facet hypertrophy. No canal stenosis or significant foraminal stenosis. IMPRESSION: 1. Lower lumbar facet arthropathy. 2. Right foraminal annulus tear plus disc bulge at L4-L5. 3. No canal stenosis or significant foraminal stenosis. Reviewed by: Aquiles Herman MD on 01/20/2023 9:09 AM PDT Approved by: Aquiles Herman MD on 01/20/2023 9:09 AM PDT Station ID: [id number]
== END 2023-01-18 17:08 | disposition home or self-care (01) ==
LOC: DI 17:07
PROVIDERS: ATTEND Family Medicine
DX: M47.26 Other spondylosis with radiculopathy, lumbar region (principal); M51.16 Intervertebral disc disorders with radiculopathy, lumbar region